=== PATIENT | male | born 1965 | race Caucasian/White ===

== ENCOUNTER 2020-08-30 14:50 | Outpatient (REF) | payer BC, SELFPAY | END 2020-08-30 14:51 | disposition home or self-care (01) | LOC: HO.LAB 14:50 | PROVIDERS: PCP Internal Medicine; Visit Provider Internal Medicine | DX: Z20.828 Contact with and (suspected) exposure to other viral communicable diseases (principal) | CPT/HCPCS: C9803; U0003 ==

== ENCOUNTER 2020-09-05 11:49 | Outpatient (REF) | payer BC, SELFPAY | END 2020-09-05 11:50 | disposition home or self-care (01) | LOC: HO.WFDLDS 11:49 | PROVIDERS: Visit Provider Internal Medicine | DX: Z20.828 Contact with and (suspected) exposure to other viral communicable diseases (principal) | CPT/HCPCS: C9803; U0003 ==

== ENCOUNTER 2020-10-01 09:36 | Outpatient (REF) | payer BC, SELFPAY | END 2020-10-01 09:37 | disposition home or self-care (01) | LOC: HO.WFDLDS 09:36 | PROVIDERS: PCP Internal Medicine; Visit Provider Internal Medicine | DX: Z20.828 Contact with and (suspected) exposure to other viral communicable diseases (principal) | CPT/HCPCS: C9803; U0003 ==